=== PATIENT | female | born 1955 | race Caucasian/White ===

== ENCOUNTER 2017-01-24 06:32 | Day surgery (SDC) | payer BC, SELFPAY ==
[~2017-01-24 06:32] MED LIST: Lactated Ringers 1,000 ML IV SCH
[2017-01-24] MEDS ORDERED: DIPRIVAN 200 MG/20 ML IV ONE (09:00)
[2017-01-24] MEDS ORDERED: Ketamine HCl 50 MG/ML IV ONE (09:00)
[2017-01-24 09:15] VITALS: O2SAT 100
[2017-01-24 09:43] VITALS: BP 133/75; PULSE 71
--- NOTE | 2017-01-24 12:17 | OP ---
SURGERY DATE/TIME: 01/24/2017814 PREOPERATIVE DIAGNOSES: 1) Screening colonoscopy. 2) Family history of colon cancer. POSTOPERATIVE DIAGNOSIS: Normal colon. PROCEDURE: Colonoscopy. SURGEON: Chavez Rasmussen M.D. ANESTHESIA: MAC by Boo Earl CRNA. ESTIMATED BLOOD LOSS: None. SPECIMENS: None. DESCRIPTION OF PROCEDURE: After informed written consent was obtained, the patient was taken to the endoscopy suite. She underwent monitored anesthesia and digital rectal exam showed normal sphincter tone and no internal lesions. The scope was then inserted in the rectum and sequentially the entire colonic mucosa was traversed. The level of cecum was reached and verified with direct visualization of ileocecal valve. Upon withdrawal careful mucosal inspection revealed no gross abnormalities. The prep was noted to be fair. Prior to withdrawal retroflexion was performed and was within normal limits. The scope was removed and the patient was transferred to the recovery room in excellent condition.
== END 2017-01-24 09:48 | disposition home or self-care (01) ==
LOC: SDC 06:32
PROVIDERS: ATTEND Family Medicine
PROC: 0DJD8ZZ Inspection of Lower Intestinal Tract, Via Natural or Artificial Opening Endoscopic (ICD-10-PCS; principal; 2017-01-24)
DX: Z12.11 Encounter for screening for malignant neoplasm of colon (principal); Z80.0 Family history of malignant neoplasm of digestive organs
CPT/HCPCS: 00810; J2704